=== PATIENT | female | born 1985 | race Caucasian/White ===

== ENCOUNTER → 2018-01-22 21:26 | Outpatient (CLI) | payer BC, SELFPAY ==
[2014-10-12 08:01] VITALS: BMI 22.3
[2018-01-28 19:55] LABS: HPV Reflexed? NOT INDICATED
== END ==
PROVIDERS: Family Provider Family Medicine; PCP Family Medicine; Visit Provider Obstetrics & Gynecology
DX: Z12.4 Encounter for screening for malignant neoplasm of cervix (principal)
CPT/HCPCS: 87624; 88175; G0145

== ENCOUNTER → 2018-02-16 16:53 | Outpatient (CLI) | payer BC, SELFPAY ==
[2014-10-12 08:01] VITALS: BMI 22.3
--- NOTE | 2018-02-16 16:58 | RAD_ITS ---
STUDY: X-RAY LEFT FOOT, FIRST TOE REASON FOR EXAM: Female, 32 years old. Pain. No injury. TECHNIQUE: 3 view(s) of the toe were obtained. COMPARISON: None. FINDINGS: Normal visualized metatarsus. There is mild arthrosis of the metatarsophalangeal (M.T.P.) joint. Normal interphalangeal joints. Normal phalanges and interphalangeal joints. The soft tissue structures are unremarkable. RAD/Toe(s) Min 2 Views IMPRESSION: Mild degenerative changes. Electronically Signed: Merari Regalado MD at 18:57 EST Tel , Service support ,
--- OUTSIDE RECORDS SUMMARY | 2018-04-05 02:10 | XMS RPT_ITS ---
:1985 Author Organization OHIP Care Team Providers Name Role Phone Gage Guadalupe Attending Unavailable Gage Guadalupe Referring Unavailable Gage Guadalupe Primary Care Unavailable Adrian López Attending Unavailable Gage Guadalupe Primary Care Unavailable PROBLEMS PROBLEMS DATE TYPE CONDITION / CODE ATTENDING STATUS SOURCE 01/22/2018 Unknown Z12.4 - Adrian López Active Rolfe Encounter for Community screening for Hospital malignant Repository neoplasm of cervix / Z12.4(ICD-10) PROCEDURES PROCEDURES No Procedure Records FoundRESULTS RESULTS TOE(S) MIN 2 VIEWS Observed: 02/16/2018 Status: F Source: AGUSTIN 4[facility] Imaging Services [address] [place] [address] Toe(s) Min 2 Views MR#: [id number] Acct: [id number] Name: ANA BENITES Rep #: [id number] : 1985 F 32 From: Merari Regalado MD PCP: Gage Guadalupe MD Status: REG CLI Study: Toe(s) Min 2 Views Date of Exam: 02/16/18 Exam# [id number] Ordering Dr: Gage Guadalupe MD STUDY: X-RAY LEFT FOOT, FIRST TOE REASON FOR EXAM: Female, 32 years old. Pain. No injury. TECHNIQUE: 3 view(s) of the toe were obtained. COMPARISON: None. FINDINGS: Normal visualized metatarsus. There is mild arthrosis of the metatarsophalangeal (M.T.P.) joint. Normal interphalangeal joints. Normal phalanges and interphalangeal joints. The soft tissue structures are unremarkable. RAD/Toe(s) Min 2 Views IMPRESSION: Mild degenerative changes. Electronically Signed: Merari Regalado MD at 18:57 EST Tel , Service support , CC: Gage Guadalupe MD Breaker Oiler: Signed PAP IG W/REFLEX HR Collected: 01/22/2018 Status: F Source: AGUSTIN HPV APTIMA 3:00 PM [facility] REPOSITORY Order Comment: CYTOLOGY INFORMATION: - CLINICAL INFORMATION: - DATE LMP/MENOPAUSE: 01/01/18 LMP - COLLECTION VIAL: Thin Prep Vial - LIVESTOCK BUYER SOURCE: CERVICAL/ENDOCERVICAL - COLLECTION TECHNIQUE: BRUSH/SPATULA Specimen Comment: [id number] Specimen Comment: Source.............Cervix;Endocervix Specimen Comment: LMP / Prev Treat...[id number]=[id number] Specimen Comment: No. of containers..01 ThinPrep Vial TYPE CODE TESTS RESULT OUT OF RANGE REFERENCE UNITS LAB L7400.0800 . Normal DIAGN Comment Result Comment: NEGATIVE FOR INTRAEPITHELIAL LESION AND MALIGNANCY. REACTIVE CELLULAR CHANGES AND/OR REPAIR ARE PRESENT. LAB L7400.0900 . Normal ADEQ Comment Result Comment: Satisfactory for evaluation. Endocervical and/or squamous metaplastic cells (endocervical component) are present. LAB L7400.1400 . Normal PERFORM Comment Result Comment: Martha Salinas, Clean Up Supervisor (ASCP) LAB L7400.1700 . Normal SIGN Comment Result Comment: Briana Fernando MD, Pathologist LAB L7400.4985 . Normal TEST METHOD Comment Result Comment: This liquid based ThinPrep(R) pap test was screened with the use of an image guided system. LAB L7400.2600 . Normal . COMM LAB L7400.2700 . Normal PAPSMR Comment Result Comment: The Pap smear is a screening test designed to aid in the detection of premalignant and malignant conditions of the uterine cervix. It is not a diagnostic procedure and should not be used as the sole means of detecting cervical cancer. Both false-positive and false-negative reports do occur. LAB L7400.2800 . Normal HPV RFLX Comment Result Comment: The HPV DNA reflex criteria were not met with this specimen result therefore, no HPV testing was performed. Performed at: [facility] [id number] Anode Adjuster: Gala Roman MD, Phone: [phone] Performed By: #### L7400.0357 #### [facility] (refer to report for specific site) refer to report for address and phone number ALLERGIES ALLERGIES DATE TYPE / CODE NAME / CODE REACTION SEVERITY SOURCE 08/30/2014 Drug No Known Unknown [facility] Allergy/4160 Allergies/F00 Hospital 31736(SNOMED [id number](RXNOR Repository CT) M) ENCOUNTERS ENCOUNTERS ADMIT/DISCHARGE ACCOUNT ADMITTING ENCOUNTER LOCATION SOURCE NUMBER CLASS 02/16/2018 [id number] Ambulatory Agustin Agustin 1 [facility] ing:MTRAD Repository 01/22/2018 [id number] Ambulatory Agustin Agustin 8 [facility] ing:LABSPEC Repository PAYERS PAYERS ENCOUNTER GUARANTOR PAYER SUBSCRIBER SOURCE 02/16/2018 ANA BENITES2475 Primary [facility] Insurance:ANTHEMPolic GOWINDOB: [facility] Number: [id number] Hospital [address]Gtq: (466) [id number] Repository [phone] (HP) cheryl Date:[id number] [address]SB: 02/16/2018 Secondary NOT GIVENUNK Agustin Insurance:SELF PAY [facility] Number: Effective Repository Date:2018-02-16 01/22/2018 Ana Dsprg1853 Primary [facility] Insurance:ANTHEMPolic [place]in[place]OB: [place] Number: [id number] Hospital [address]Fzm: [phone]) [id number] Repository [phone] (HP) cheryl Date:[id number], [place] [address]FA: 01/22/2018 Secondary NOT GIVENUNK Agustin Insurance[facility]LF [facility]: Effective Repository Date:2018-01-22
== END ==
PROVIDERS: Family Provider Family Medicine; PCP Family Medicine; Referring Provider Family Medicine; Visit Provider Family Medicine
DX: M79.675 Pain in left toe(s) (principal)
CPT/HCPCS: 73660

== ENCOUNTER 2018-06-03 19:32 | Emergency (ER) | payer BC, SELFPAY ==
[2018-06-03 19:32] VITALS: BP 132/82; PULSE 101; RESP 18; TEMP 37.2; O2SAT 98
[2018-06-03 19:33] VITALS: BP 132/82; PULSE 98; RESP 17; TEMP 37; O2SAT 98; BMI 24.1
--- NOTE | 2018-06-03 21:14 | ED.DCSUM_ITS ---
- ER Visit Summary Date of Service: 06/03/18 Chief Complaint: Finger lacerations History of Present Illness: The patient is a 33 F who presents with finger lacerations to her left fourth and fifth fingers. Patient was using a knife when she accidentally cut herself. Patient states her last tetanus shot was in 2004. Patient denies any paresthesias or weakness. Been persistent. Patient states her pain is worse with movement. Physical Examination: Vital signs are stable. Patient is afebrile. Patient is in no acute distress. Skin is warm dry. There is a 1 cm full-thickness linear laceration over the middle phalanx of the left fifth finger. There is a 0.5 cm partial-thickness linear laceration over the middle phalanx of the left fourth finger. There is minimal gapping of the wound margins. There is mild bleeding. There are no foreign bodies noted. Sensation was intact to light touch in all digits. Capillary refill was less than 2 seconds in all digits. Emergency Department Course and Treatment: The wounds were cleaned and closed with Dermabond skin adhesive. An aluminum foam splint was applied to the left fifth finger. Patient was given a tetanus booster. Patient was instructed to keep the wounds clean and dry. Patient was instructed to avoid bacitracin, Neosporin, or any Vaseline-based ointment. Patient understood and was agreeable with the plan. All questions were answered. Disposition: Discharge home Impression: Laceration to left fourth and fifth fingers This note was generated with [employer] dictation software. It may contain incorrect words, spelling, and punctuation that were not noted in review of the chart prior to signing ED Disposition - Plan for ED Patient: Disposition: Home or Assisted Living Diagnosis: Laceration of finger Instructions: ED Laceration Ext Skin Glue, ED Laceration Hand Referrals: Gage Guadalupe MD [Primary Care Provider] - 5-7 Days
[2018-06-03] MEDS: Diphth,Pertuss(Acell),Tet Vac 0.5 ML Vial IM (21:28)
[2018-06-03 21:52] VITALS: BP 130/70; PULSE 78; RESP 18; O2SAT 97
== END 2018-06-03 21:53 | disposition home or self-care (01) ==
PROVIDERS: Emergency Provider Emergency Medicine; Family Provider Family Medicine; PCP Family Medicine
DX: S61.215A Laceration without foreign body of left ring finger without damage to nail, initial encounter (principal); S61.217A Laceration without foreign body of left little finger without damage to nail, initial encounter; F41.9 Anxiety disorder, unspecified; Z23 Encounter for immunization; Z79.899 Other long term (current) drug therapy; W26.0XXA Contact with knife, initial encounter; Y93.89 Activity, other specified; Y92.89 Other specified places as the place of occurrence of the external cause; Y99.8 Other external cause status
CPT/HCPCS: 12001; 90471; 90715; 99283

== ENCOUNTER 2019-04-25 14:00 | Observation (INO) | payer BC, SELFPAY ==
[2019-04-25] VITALS (9 sets, daily range): BP systolic 121–137; BP diastolic 72–102; PULSE 101–137; RESP 12–19; TEMP 36.8–37.2; O2SAT 97–100; BMI 22.6; BMI 22.4; BMI 22.5
--- NOTE | 2019-04-25 14:17 | EKG12_ITS ---
Test Reason : PALPS Blood Pressure : / mmHG Vent. Rate : 106 BPM Atrial Rate : 106 BPM P-R Int : 158 ms QRS Dur : 088 ms QT Int : 370 ms P-R-T Axes : 072 078 049 degrees QTc Int : 491 ms Sinus tachycardia Otherwise normal ECG Confirmed by JOSE URENA, JESSICA ([id number]), senior technical editor VÍCTOR SANTANA ([id number]) on 04/28/2019 8:58:32 AM Referred By: COSME Confirmed By:JESSICA GARCIA MD
--- NOTE | 2019-04-25 14:17 | RAD_ITS ---
STUDY: X-RAY CHEST REASON FOR EXAM: Female, 33 years old. COMPLAINS OF and quot;HIGH HEART RATE and quot; SINCE 1100. CURRENTLY BEING TREATED WITH ATB FOR SINUS INFECTION. TECHNIQUE: Single frontal view of the chest. COMPARISON: None. FINDINGS: The lungs are clear and expanded. There is no demonstrated pleural abnormality. Normal size heart. Normal mediastinum and pacheco. Normal visualized pulmonary arteries. Normal visualized aortic arch and descending thoracic aorta. Bilateral nipple artifact. Normal visualized thoracic spine. Normal visualized ribs, clavicles, and shoulders. There is no demonstrated abnormality of the visualized soft tissue structures of the upper abdomen. RAD/Chest 1 View (Portable) IMPRESSION: No acute pulmonary findings. Electronically Signed: Lalito Mejia MD at 14:41 EST Tel , Service support ,
--- NOTE | 2019-04-25 14:25 | ED.VISSUMM ---
- ER Visit Summary Date of Service: 04/25/19 Chief Complaint: Palpitations History of Present Illness: The patient is a 33 F with palpitations that started today at 11 AM. She never had this before. Nothing seemed to bring it on. Nothing makes it better or worse. She has a dry cough and she is currently being treated for sinusitis with Augmentin. She is not currently taking decongestants. She does take Flonase and an SSRI as well as control. No other new medications. No history of heart disease, blood clots, or lung disease. Physical Examination: Afebrile and vital signs unremarkable except for heart rate of 137. Patient is nontoxic and in no acute distress. Heart tachycardic but regular. Lungs clear. Abdomen soft. Extremities nontender with no edema. Pulses strong and equal. Test Results: EKG, labs, chest x-ray ordered and results are pending. Emergency Department Course and Treatment: Patient was placed on a monitor. EKG, labs, chest x-ray ordered. Treated with IV fluid bolus. Platelets 451. Otherwise CBC normal. Potassium 3.4 and BUN 6. Coags pending. Troponin normal. D-dimer elevated. negative. Mag normal. TSH normal. Cultures pending. Chest x-ray showed nothing acute. Because of the d-dimer elevation, CT was ordered. This showed bilateral subsegmental PEs, bilateral patchy infiltrates, and bilateral small pleural effusions. Because of the patient's multiple findings and tachycardia, I feel she would need inpatient care. She was treated with a azithromycin and Rocephin. Cultures pending. After discussion with the hospitalist, she was treated with Lovenox. Patient remained stable. Prior to discharge, patient requested additional insulin. She did not want to stay for a blood sugar recheck. She was given 6 units. She is going to eat and recheck her sugar. She has equipment for this. She voiced understanding that if she does not eat, her sugars could drop. Patient was treated and discharged. Treatment Plan: As above Disposition: Admission Impression: Bilateral subsegmental PEs Bilateral pneumonia Tachycardia This note was generated with [employer] software. It may contain incorrect words, spelling, and punctuation that were not noted in review of the chart prior to signing ED Disposition - Plan for ED Patient: Disposition: [facility] Care [facility]
[2019-04-25] MEDS: 0.9% Normal Saline 1,000 ML 1000 ML IV (14:34)
[2019-04-25 14:44] LABS: Absolute Lymphocyte Count 2.32 X10^3/uL (0.83-4.51); Absolute Neutrophil Count 7.5 X10^3/uL (2.0-7.7); Basophil# 0.03 X10^3/uL; Basophil% 0.3 % (0-1); Eosinophil# 0.07 X10^3/uL; Eosinophils% 0.7 % (0-5); Hematocrit 42.1 % (37-47); Hemoglobin 13.1 g/dL (12.0-15.0); Lymphocyte # 2.32 X10^3/ul (4.0); Lymphocyte % 22.1 % (19-41); Mean Corp Hgb Conc 31.1 g/dL (32-36); Mean Corpuscular Hgb 25.5 pg (27.0-32.0); Mean Corpuscular Volume 81.9 fL (81-99); Monocyte# 0.45 X10^3/uL; Monocyte% 4.3 % (0-10); NRBC Flagged by Analyzer 0 % (0-5); Neutrophil # 7.52 X10^3/uL (2.7-7.7); Neutrophil % 71.5 % (47-70); Platelet Count 451 K/mm3 (150-450); RBC Distribution Width CV 13.2 % (11.6-14.6); RBC Distribution Width SD 39.7 fl (35.1-43.9); Red Blood Count 5.14 M/mm3 (4.2-5.4); White Blood Count 10.5 K/mm3 (4.4-11.0)
[2019-04-25 14:53] LABS: D-Dimer Quantitative (DVT/PE) 0.88 FEU/ug/m (0.27-0.49)
[2019-04-25 15:05] LABS: Anion Gap 8 (5-15); BUN 6 mg/dL (7-18); BUN/Creat Ratio 10.8 RATIO (10-20); Calcium,Total 9.3 mg/dL (8.5-10.1); Chloride 103 mmol/L (98-107); Creatinine, Serum 0.56 mg/dL (0.55-1.02); EST Glomerular Filtration Rate 133 mL/min (>60); Est Glom Filt Rate - Afr Amer 161 mL/min (>60); Glucose 90 mg/dL (74-106); Magnesium 2.4 mg/dL (1.6-2.6); Potassium 3.4 mmol/L (3.5-5.1); Sodium Level 138 mmol/L (136-145); Thyroid Stim Hormone (TSH) 0.69 uIU/mL (0.358-3.74)
[2019-04-25 15:20] LABS: Pregnancy, Serum, hCG Quali. NEGATIVE Negative (0-9 Nonpreg)
--- NOTE | 2019-04-25 15:23 | CT_ITS ---
STUDY: CTA CHEST REASON FOR EXAM: Female, 33 years old. Increased heart rate, palpitations, PE RADIATION DOSAGE (If Supplied By Facility): CTDIvol = ( 10.12 ) mGy, DLP = ( 251.80 ) mGycm TECHNIQUE: The examination was performed with the intravenous administration of 75ml Isovue 370. Post-processing of the angiographic images was performed, with multiplanar reformation and 3D reconstruction. Individualized dose optimization techniques were used for this CT. COMPARISON: CT of the abdomen and pelvis dated August 30, 2014 FINDINGS: There are bilateral groundglass and patchy opacities within the upper and lower lobes. There are small bilateral pleural effusions present. Normal enhancement of the main pulmonary artery and right and left pulmonary arteries. There are filling defects within subsegmental pulmonary arteries within the lower lobes consistent with underlying emboli. Normal thoracic aorta and visualized great vessels. There is no demonstrated aortic dissection. Normal heart and pericardium. Normal mediastinum. Normal hilar regions. Normal visualized trachea and bronchi. Normal osseous structures. Normal visualized upper abdomen. CT/CTA Chest W/WO Contrast IMPRESSION: Bilateral pulmonary emboli involving subsegmental pulmonary arteries within the lower lobes. Bilateral patchy and groundglass opacities concerning for underlying edema and/or an infectious process. Small bilateral pleural effusions. N.B. : The above information has been verbally conveyed by Merari Regalado MD to Dr. Pedro Mcdowell MD, on 04/25/2019 16:23:30 (ET). Electronically Signed: Merari Regalado MD at 16:24 EST Tel , Service support ,
[2019-04-25 17:07] LABS: Prothrombin Time (Protime)PT. 13.1 SECONDS (11.7-14.9)
[2019-04-25 17:08] LABS: Partial Thromboplast Time 32.5 Seconds (24.1-36.2)
[2019-04-25] MEDS: Ceftriaxone 1 GM/50 ML BAG IV (17:09)
[2019-04-25] MEDS: Enoxaparin 60 MG/0.6 ML Syringe SC (18:12)
--- NOTE | 2019-04-25 18:19 | HP.PCM_ITS ---
Problem List (1) Status: Acute (2) Status: Acute (3) Status: Acute History of Present Illness Date of Admission: 04/25/19 Chief Complaint: racing heart and lightheadedness The patient is a 33 year old F with no significant past medical history who has recently been treated as an outpatient with Augmentin for cough and green nasal discharge. She presented to the emergency department at [facility] on 04/25/2019 for racing heart that she noticed this AM. She actually tells me that the cough and the nasal congestion are improving since the anti biotics were started. She has some loose stool since starting the Augmentin. Vital signs of presentation to the emergency department were heart rate 137, temperature 98.7, blood pressure 137/102, respiratory rate 16 and she was 99 to 100% saturated on room air. The white blood cell count was 10.5 with 71.5% neutrophils. Hemoglobin was 13.1 and the platelets were increased at 451,000. A d-dimer was increased at 0.88. BMP was remarkable for a decreased potassium at 3.4. Troponin was less than 0.015. TSH was normal at 0.69. Serum was negative. CTA of the chest showed bilateral pulmonary emboli involving subsegmental pulmonary arteries within the lower lobes. There were bilateral patchy and groundglass opacities secondary to pneumonia. She denies CP and also denies SOB. No hemoptysis. There were also small bilateral pleural effusions. She is on a control pill and has been on control pills for many years however she recently had her control pill changed by Dr. López. She is being admitted to a monitored bed on PCU. She was given Lovenox in the Ed and she will be started on Xarelto in the AM. 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 Paternal History Items: No pertinent history Review of Systems Constitutional: Denies: Chills, Fever, Weight Change HEENT: Reports: Nasal Congestion, Post Nasal Drip. Denies: Ear Pain, Head Aches, Sinus Congestion, Sinus Drainage, Sore Throat Cardiovascular: Reports: Palpitations. Denies: Chest Pain, Chest Pressure, Chest Tightness, Edema, Orthopnea Respiratory: Reports: Cough - denies sputum production but, I think she is swallowing secreations. Denies: Hemoptysis, Shortness of Breath, Shortness of breath at rest, Shortness of breath upon exertion, Sputum production Gastrointestinal: Denies: Abdominal Pain, Nausea, Vomiting Genitourinary: Denies: Dysuria Gynecological: Denies: Breast symptoms, Vaginal discharge Musculoskeletal: Reports: Joint Tenderness - R hip and the left knee. Denies: Joint Pain Skin: Denies: Jaundice, Rash, Wounds Neurological: Denies: Balance problems, Confusion, Focal weakness, Headaches, Numbness, Tingling, Seizures Psychiatric: Reports: Anxiety. Denies: Depression, Homicidal Ideations, Suicidal Ideations Hematologic/ Lymphatic: Denies: Easy Bruising, Easy Bleeding, Hx of blood clot VTE Information - Inpt Only VTE Present on Admission: Yes VTE Mechan Device Prophylaxis: None VTE Pharm Prophylaxis ordered?: No Reason prophylaxis not ordered:: Treatment Not Indicated - She received a therapeutic dose of Lovenox in the emergency department and will be started on Xarelto in the a.m. Patient Problems: Active and Suspected Problems Pulmonary emboli (Acute) Community acquired pneumonia (Acute) Hypokalemia (Acute) - Physical Exam Vitals/I&O's: Vital Signs Temp Pulse Resp BP Pulse Ox 98.9 F 112 H 19 H 128/91 H 99 04/25/19 16:50 04/25/19 17:09 04/25/19 17:09 04/25/19 17:09 02/16/20 17:09 Oxygen Delivery Method Room Air Weight: 128 lb Body Mass Index (BMI) 22.6 Intake and Output for Last 24 Hours 04/23/19 04/24/19 04/25/19 23:59 23:59 23:59 Intake Total 1050 / 1050 Balance 1050 / 1050 General: Alert, Oriented x3, Cooperative, No apparent distress, Well developed, Well nourished HEENT: Atraumatic, PERRLA, EOMI, Normocephalic Oral: No Gingival or Mucosal Lesions/ Ulcerations, Dry Mucosa Neck: Supple, No JVD, Negative Carotid Bruits, No Nodes, Trachea Midline Lungs: Clear to auscultation, Normal air movement, No rhonchi, No wheeze, No rales Cardiovascular: Regular Rhythm, Normal S1, Normal S2, No murmurs, No Ectopic Activity, No rub noted, No Gallop, Tachycardic Abdomen: Bowel Sounds Present, Soft, Non Tender, Non-Distended Extremities: No clubbing, No cyanosis, No edema, Capillary Refill Less than 3 Seconds, No Calf Tenderness, Peripheral Pulses Normal, - - Negative Homans, negative Clovis signs Skin: No rashes, No breakdown Musculoskeletal: No Tenderness to Palpation of Joints or Extremities, No Muscle Wasting Neurological: Cranial nerves II-XII grossly intact, Neuro grossly intact Psych/Mental Status: Normal Affect, Appropriate Laboratory Results 04/25/19 14:10: WBC 10.5, RBC 5.14, Hgb 13.1, Hct 42.1, MCV 81.9, MCH 25.5 L, MCHC 31.1 L, RDW Std Deviation 39.7, RDW Coeff of Lashanda 13.2, Plt Count 451 H, MPV 9.0, Immature Gran % (Auto) 1.100 H, Neut % (Auto) 71.5 H, Lymph % (Auto) 22.1, [place] % (Auto) 4.3, Eos % (Auto) 0.7, Baso % (Auto) 0.3, Absolute Neuts (auto) 7.5, Absolute Lymphs (auto) 2.32, Nucleated RBC % 0 04/25/19 14:10: D-Dimer Quant (PE/DVT) 0.88 H* 04/25/19 14:10: Sodium 138, Potassium 3.4 L, Chloride 103, Carbon Dioxide 27.0, Anion Gap 8, BUN 6 L, Creatinine 0.56, Estim Creat Clear Calc 119.30, Est GFR (MDRD) Af Amer 161, Est GFR (MDRD) Non-Af 133, BUN/Creatinine Ratio 10.8, Glucose 90, Calcium 9.3, Magnesium 2.4, Troponin I < 0.015, TSH 0.69 04/25/19 14:10: Serum , Qual NEGATIVE 04/25/19 14:10: PT 13.1, INR 1.0, APTT 32.5 Assessment/Plan All Active Problems Pulmonary emboli (Acute) Community acquired pneumonia (Acute) Hypokalemia (Acute) Impressions 1. Community acquired pneumonia-has been on Augmentin as an outpatient. Influenza swab was negative at her PCPs office. 2. Subsegmental pulmonary emboli in the lower lobes-more likely than not related to control pills, recently changed by Dr. López. She was admitted to a monitored bed on PCU. Patient was given a therapeutic dose of Lovenox in the emergency department and will be started on Xarelto 15 mg twice daily in the AM. Serial cardiac enzymes have been ordered and an echocardiogram in the a.m. to rule out right ventricular strain. administrative services officer has been consulted to determine if the insurance company will cover Xarelto. 3. Hypokalemia-supplement ordered in the IV fluid BCP has been discontinued. She will need to discuss with Dr. López an alternate method of control. Code Visit OBSV E&M: 48028 Initial observation care L3
[2019-04-25] MEDS: Rivaroxaban 15 MG Tablet PO (19:44)
[2019-04-25] MEDS: 0.9% Saline Lock 10 ML Syringe IV (19:45)
[2019-04-25] MEDS: guaiFENesin 1,200 MG Tablet 1200 MG PO (21:33)
[2019-04-26 03:00] VITALS: PULSE 82
[2019-04-26 03:15] VITALS: BP 115/78; PULSE 89; RESP 18; TEMP 36.3; O2SAT 99
--- NOTE | 2019-04-26 05:55 | ECHOD_ITS ---
Reason For Study: SOB Procedure This was a 2D Doppler, Color Flow transthoracic echocardiogram. Exam performed portable in patient room. Left Ventricle Normal size and thickness. The estimated ejection fraction is 65 %. Normal diastology for age. No regional wall motion abnormalities noted. Right Ventricle Normal size and thickness. Normal systolic function. Atria Normal left atrium. Normal right atrium. Normal atrial septum. Mitral Valve The mitral valve is structurally normal. No prolapse or stenosis seen. Tricuspid Valve Normal tricuspid valve. Unable to estimate RV systolic pressure due to inadequate jet, pulmonary artery pressure probably normal. Aortic Valve Normal aortic valve. Trisinus/trileaflet aortic valve. Pulmonic Valve Normal pulmonic valve. Great Vessels Normal aortic root. Normal arch. Normal inferior vena cava. Inferior vena cava collapse with sniff. Pericardium/Pleural No pericardial effusion. MMode/2D Measurements & Calculations LVIDd: 4.0 cm IVSd: 0.93 cm Ao root diam: 2.4 cm LVIDs: 2.2 cm LVPWd: 1.00 cm RVDd: 2.9 cm FS: 46.6 % LAV(MOD-bp): 41.0 ml LVAd ap4: 24.2 cm2 SV(MOD-sp4): 40.5 ml LAV(MOD-bp) Indexed: 25.7 ml/m2 EDV(MOD-sp4): 63.0 ml LAV(MOD-sp2): 41.9 ml EDV(sp4-el): 63.1 ml LAV(MOD-sp4): 40.0 ml LVAs ap4: 12.7 cm2 ESV(MOD-sp4): 22.4 ml ESV(sp4-el): 22.0 ml EF(MOD-sp4): 64.4 % EF(sp4-el): 65.2 % SV(sp4-el): 41.1 ml LA A4 area: 15.4 cm2 LA dimension(2D): 3.1 cm RA A4 area: 10.7 cm2 Time Measurements MV dec time: 0.10 sec Doppler Measurements & Calculations MV E max mac: 123.6 cm/sec Lat Peak E' Mac: 11.6 cm/sec Med Peak E' Mac: 14.6 cm/sec MV A max mac: 92.3 cm/sec E/E' lat: 10.6 E/E' med: 8.4 MV E/A: 1.3 Ao V2 max: 145.7 cm/sec LV V1 max: 110.5 cm/sec PA V2 max: 131.4 cm/sec Ao max P.5 mmHg LV V1 max P.9 mmHg Interpretation Summary The estimated ejection fraction is 65 %. Normal diastology for age. Unable to estimate RV systolic pressure due to inadequate jet, pulmonary artery pressure probably normal. There is no comparison study available. Ordering Physician: Luciana Arzola Referring Physician: Gage Guadalupe Performed By: Zahida Coyle, CHAPIS, RVT
[2019-04-26 07:22] VITALS: PULSE 89
[2019-04-26 09:15] VITALS: BP 121/59; PULSE 79; RESP 16; TEMP 36.7; O2SAT 97
--- NOTE | 2019-04-26 10:38 | DCINST_ITS ---
- Discharge Diagnoses Current Active Problems: Current Active and Chronic Problems Pulmonary emboli (Acute) Community acquired pneumonia (Acute) Hypokalemia (Acute) You will use the following diet at home:: Regular Your food should be the consistency of: Regular Discharge Activity: Return to Normal Activity, May Not Drive - for 5 days Weight Bearing Status: Weight bearing as tolerated Call your doctor if your incision/area has: Continuous Slow Oozing, Sudden Increased Bleeding, Increased Pain/ Swelling, Increased Redness Call your doctor if you observe: Fever of 101 or Higher, Coldness, Increased Pain, Numbness or Tingling, Inability to urinate, Inability to have a bowel movement, Shortness of breath, Dizziness, Fainting spells, Swelling in the ankles, Chest pain, Prolonged hiccoughing, Increased palpitations (irregular heartbeat), Calf discomfort Additional Instructions: control pill stop as probably the cause for PE Allergies/Adverse Reactions: Allergies No Known Allergies Allergy (Verified 04/25/19 14:02) Medications to take at Discharge Fluvoxamine Maleate [Luvox] 75 mg PO DAILY 08/03/14 Fluticasone 0.05% [Flonase Nasal [place]] 1 spray NASAL PRN PRN 04/25/19 Guaifenesin [Mucinex] 1,200 mg PO BID #14 tab 04/26/19 Levofloxacin [Levaquin] 500 mg PO DAILY #10 tab 04/26/19 Rivaroxaban [Xarelto] 15 mg PO BIDCM #42 tab 04/26/19 The following prescriptions were given: Levofloxacin [Levaquin] 500 mg PO DAILY #10 tab Transmission Status: Pending to [facility] Guaifenesin [Mucinex] 1,200 mg PO BID #14 tab Transmission Status: Pending to [facility] Rivaroxaban [Xarelto] 15 mg PO BIDCM #42 tab Transmission Status: Pending to [facility] Primary Care Physician: Gage Guadalupe MD [Primary Care Provider] - Please follow up with your Primary Care Physician in: in 2 weeks Test Results: Test results from this visit will be discussed in further detail at your follow- up appointment, if applicable.
--- NOTE | 2019-04-26 10:38 | DS.PCM_ITS ---
Discharge Date and Diagnosis - Problem List Patient Problems: Active and Suspected Problems Pulmonary emboli (Acute) Community acquired pneumonia (Acute) Hypokalemia (Acute) Date of Admission: 04/25/19 Date of Discharge: 04/26/19 - Primary Discharge Diagnosis Active and Suspected Problems Pulmonary emboli (Acute) Community acquired pneumonia (Acute) Hypokalemia (Acute) Hospital Course and Treatment Imaging Results: 04/26/19 05:55 Echo Complete [ECHO] AM (NON MEDS) Summary of Care Provided: The patient is a 33 year old F on control pill was admitted for cough greenish nasal discharge. Patient is also short of breath. Patient is started on Augmentin for pneumonia as an outpatient on Friday, about 2 days ago. Patient was tachycardic, heart rate 137. D-dimers was elevated. Chest CTPA was done and reported subsegmental bilateral PE mid and lower lobes and bilateral patchy groundglass opacities secondary to pneumonia. Patient started on Lovenox, therapeutic dose which then changed to Xarelto 15 mg twice daily. Serial troponin enzymes negative. Magnesium normal. 2D echo was done and shows EF 65% with normal diastolic. Normal right ventricle systolic function, size and thickness. As patient had mild side effect of diarrhea on Augmentin, therefore antibiotic changed to Levaquin 500 mg for 5 more days complete a total of 8 days. Diagnosis: Subsegmental lateral pulmonary EEG. Bilateral community-acquired pneumonia, most probably bacterial Contraceptive pill discontinued. Follow-up with Dr. López an alternate method of control. Discharge medication reconciliation done. Discharge follow-up instructions completed. Discharge process discussed with the patient and all questions were answered to patient's satisfaction. Prescription for Xarelto and Levaquin and Mucinex sent to patient's pharmacy. Patient Problems: Active and Suspected Problems Pulmonary emboli (Acute) Community acquired pneumonia (Acute) Hypokalemia (Acute) - Physical Exam Vitals/I&O's: Vital Signs Temp Pulse Resp BP Pulse Ox 97.3 F L 89 18 115/78 99 04/26/19 03:15 04/26/19 07:22 04/26/19 03:15 04/26/19 03:15 04/26/19 03:15 Oxygen Delivery Method Room Air Weight: 127 lb Body Mass Index (BMI) 22.4 Intake and Output for Last 24 Hours 04/24/19 04/25/1920 23:59 23:59 23:59 Intake Total 2300.42 / 2300.42 520 / 520 Balance 2300.42 / 2300.42 520 / 520 General: Alert, Oriented x3, Cooperative HEENT: Atraumatic, PERRLA, EOMI, Normocephalic Oral: No Gingival or Mucosal Lesions/ Ulcerations, Dry Mucosa Neck: Supple, No JVD, Negative Carotid Bruits Lungs: Diminished - Air entry bilateral equal., Rhonchi - Coarse rhonchi Cardiovascular: Regular rate, Regular Rhythm, Normal S1, Normal S2, No murmurs Abdomen: Bowel Sounds Present, Soft, Non Tender, Non-Distended Extremities: No edema, Capillary Refill Less than 3 Seconds Skin: No rashes, No breakdown Musculoskeletal: No Tenderness to Palpation of Joints or Extremities, Arthritic Changes Neurological: Cranial nerves II-XII grossly intact, Deep Tendon Reflexes 2+/4 and Symmetrical, Neuro grossly intact Psych/Mental Status: Normal Affect, Appropriate Laboratory Results 04/25/19 14:10: WBC 10.5, RBC 5.14, Hgb 13.1, Hct 42.1, MCV 81.9, MCH 25.5 L, MCHC 31.1 L, RDW Std Deviation 39.7, RDW Coeff of Lashanda 13.2, Plt Count 451 H, MPV 9.0, Immature Gran % (Auto) 1.100 H, Neut % (Auto) 71.5 H, Lymph % (Auto) 22.1, [place] % (Auto) 4.3, Eos % (Auto) 0.7, Baso % (Auto) 0.3, Absolute Neuts (auto) 7.5, Absolute Lymphs (auto) 2.32, Nucleated RBC % 0 04/25/19 14:10: D-Dimer Quant (PE/DVT) 0.88 H* 04/25/19 14:10: Sodium 138, Potassium 3.4 L, Chloride 103, Carbon Dioxide 27.0, Anion Gap 8, BUN 6 L, Creatinine 0.56, Estim Creat Clear Calc 119.30, Est GFR (MDRD) Af Amer 161, Est GFR (MDRD) Non-Af 133, BUN/Creatinine Ratio 10.8, Glucose 90, Calcium 9.3, Magnesium 2.4, Troponin I < 0.015, TSH 0.69 04/25/19 14:10: Serum , Qual NEGATIVE 04/25/19 14:10: PT 13.1, INR 1.0, APTT 32.5 04/25/19 19:00: Troponin I < 0.015 04/25/19 21:05: Troponin I < 0.015 Current Medications Acetaminophen (Tylenol) 650 mg PO Q6H PRN PRN PRN Reason: Pain Score 1-10/Temp > 100.7 F Fluticasone Propionate (Flonase Nasal [place]) 1 spray NASAL DAILY PRN PRN PRN Reason: ALLERGIES Fluvoxamine Maleate (Luvox) 75 mg PO DAILY [facility] Guaifenesin (Mucinex) 1,200 mg PO BID [facility] Last Admin: 04/25/19 21:33 Dose: 1,200 mg Documented by: Hydrocodone Bit/Homatropine Methylb (Hycodan Syrup) 10 ml PO QHS [facility] Last Admin: 04/25/19 21:33 Dose: 10 ml Documented by: Magnesium Hydroxide (Milk Of Magnesia) 30 ml PO DAILY PRN PRN PRN Reason: Constipation Ondansetron HCl (Zofran) 4 mg IV Q8H PRN PRN PRN Reason: NAUSEA/VOMITING Oxycodone HCl (Oxyir) 5 mg PO Q4H PRN PRN PRN Reason: Pain Score 4-10/10 Prochlorperazine Edisylate (Compazine Iv) 5 mg IV Q4H PRN PRN PRN Reason: Breakthrough Nausea/Vomiting [facility] Admin: 04/25/19 19:44 Dose: 15 mg Documented by: Sodium Chloride () 10 - 40 ml IV UD PRN PRN Reason: SALINE FLUSH Last Admin: 04/25/19 19:45 Dose: 10 ml Documented by: Throat Lozenges (Cepacol Sore Throat Lozenge) 1 lozenge MUCOUS MEM Q2H PRN PRN PRN Reason: SORE THROAT Home Medications: Medications to take at Discharge RX: Fluvoxamine Maleate [Luvox] 75 mg PO DAILY 08/03/14 RX: Fluticasone 0.05% [Flonase Nasal [place]] 1 spray NASAL PRN PRN 04/25/19 Levofloxacin [Levaquin] 500 mg PO DAILY #10 tab 04/26/19 RX: Guaifenesin [Mucinex] 1,200 mg PO BID #14 tab 04/26/19 RX: Rivaroxaban [Xarelto] 15 mg PO BIDCM #42 tab 04/26/19 Following Prescrptions Were Given to Patient: Levofloxacin [Levaquin] 500 mg PO DAILY #10 tab Transmission Status: Received by [facility] RX: Guaifenesin [Mucinex] 1,200 mg PO BID #14 tab Transmission Status: Received by [facility] RX: Rivaroxaban [Xarelto] 15 mg PO BIDCM #42 tab Transmission Status: Received by [facility] Primary Care Physician: Gage Guadalupe MD [Primary Care Provider] - Medical Necessity - Tobacco Use Smoking Status: Never smoker Tobacco Use: Non-smoker Meaningful Use Info Meaningful Use Diagnoses (Choose all that apply): None applicable Code Visit OBSV E&M: 92905 Observation care discharge
[2019-04-26] MEDS: fluvoxaMINE Maleate 50 MG Tablet 75 MG PO (10:48)
[2019-04-26] MEDS: guaiFENesin 1,200 MG Tablet 1200 MG PO (10:48)
[2019-04-26] MEDS: Rivaroxaban 15 MG Tablet PO (10:49)
--- NOTE | 2019-04-26 10:49 | CASEMGMT ---
Addendum entered by Jazmyn Covington 04/26/19 12:18: Meds were accidentally sent to [facility] retail pharmacy so Leonard from pharmacy called meds to [facility] per pt request. Call to [facility] and per pharmacist, pt's co-pay for Xarelto is $128.32 at this time. Pt is updated and provided with Xarelto co-pay card with instruction at this time, voices understanding. Pt voices no further questions/concerns/needs at this time. Tam JONES CM Original Note: Pt to be sent home on anti-coagulant for the PE's. Pt states [facility] as preferred pharmacy and this was placed in [employer] at this time. Pt states that she has Rx coverage thru her insurance and this RN CM advised her that once script e-scribed to pharmacy then this RN CM will call to check co-pay and can provide coupon card, pt voices understanding. Pt voices no further questions/concerns/needs at this time. Tam JONES CM
--- NOTE | 2019-04-26 12:19 | PHA.DC.MC ---
Addendum entered and electronically signed by Sosa Padgett 04/26/19 12:21: Prescriptions sent to [facility], pt wants [facility]. I called our pharmacy and they will transfer to [facility]. Original Note: Pharmacy Service has performed discharge medication reconciliation and counseling for this patient. 1. RIVAROXABAN 15MG PO BIDCM X 3 WEEKS THEN 20MG PO DAILY WITH DINNER 2. GUAIFENESIN 1200MG PO BID X 7 DAYS 3. LEVOFLOXACIN 500MG PO DAILY X 10 DAYS The patient's discharge medication list was reviewed for discrepancies and discrepancies were resolved. Home Medications Fluvoxamine Maleate [Luvox] 75 mg PO DAILY 08/03/14 Fluticasone 0.05% [Flonase Nasal [place]] 1 spray NASAL PRN PRN 04/25/19 Guaifenesin [Mucinex] 1,200 mg PO BID #14 tab 04/26/19 Levofloxacin [Levaquin] 500 mg PO DAILY #10 tab 04/26/19 Rivaroxaban [Xarelto] 15 mg PO BIDCM #42 tab 04/26/19 The patient was counseled on the following discharge medications and changes in medications for homegoing were reviewed. The Reason for Use, instructions for use, and potential side effects were reviewed for all new medications. The patient's questions regarding all of their medications were answered. The patient was able to verbally demonstrate an understanding of their discharge medications.
== END 2019-04-26 10:38 | disposition home or self-care (01) ==
LOC: ED 14:39 → PCU 18:30
PROVIDERS: Admitting Provider Internal Medicine; Emergency Provider Emergency Medicine; PCP Family Medicine; Visit Provider Internal Medicine
DX: I26.99 Other pulmonary embolism without acute cor pulmonale (principal); E87.6 Hypokalemia; J18.9 Pneumonia, unspecified organism; R00.2 Palpitations; Z79.899 Other long term (current) drug therapy; Z79.3 Long term (current) use of hormonal contraceptives
CPT/HCPCS: 36415; 71045; 71275; 80048; 83735; 84443; 84484; 84703; 85025; 85379; 85610; 85730; 87040; 93005; 93306; 96361; 96365; 96367; 96372; 99218; 99285; J7030; Q9967; A4216; G0378

== ENCOUNTER → 2019-05-12 | Outpatient (CLI) | payer BC, SELFPAY ==
[2019-04-25 18:31] VITALS: BMI 22.4
[2019-05-12 20:08] LABS: Chlamydia Trachomatis by PCR Negative (Negative); Neisserai gonorrhoeae by PCR Negative (Negative); Probe Check PASS; Sample Adequacy Control PASS; Specimen Processing Control PASS
== END | disposition home or self-care (01) ==
PROVIDERS: PCP Family Medicine; Referring Provider Obstetrics & Gynecology; Visit Provider Obstetrics & Gynecology
DX: Z11.3 Encounter for screening for infections with a predominantly sexual mode of transmission (principal)
CPT/HCPCS: 87491; 87591

== ENCOUNTER → 2019-05-14 | Outpatient (CLI) | payer BC, SELFPAY ==
[2019-04-25 18:31] VITALS: BMI 22.4
--- NOTE | 2019-05-14 09:50 | VDLE_ITS ---
Reason For Study: PE RIGHT LEFT GSV is normal. GSV is normal. CFV is compressible, spontaneous, phasic, CFV is compressible, spontaneous, phasic, competent and demonstrates normal competent, and demonstrates normal augmentation. augmentation. FV is compressible, spontaneous, phasic, FV is compressible, spontaneous, phasic, competent and demonstrates normal competent and demonstrates normal augmentation. augmentation. POP V is compressible, spontaneous, phasic, POP V is compressible, spontaneous, phasic, competent and demonstrates normal competent and demonstrates normal augmentation. augmentation. T/P Trunk is compressible. T/P Trunk is compressible. PTV is compressible. PTV is compressible. RT PerV is compressible. LT PerV is compressible. Procedure Exam performed in department. A preliminary report was called and/or faxed to [facility]. Interpretation Summary Deep veins of the lower extremities are bilaterally patent and compressible segmentally. There is no evidence of deep vein thrombosis on either side. Valvular competence appears intact within the proximal deep venous systems bilaterally. The great saphenous veins appear bilaterally patent and compressible segmentally. Ordering Physician: Marsha Baca Referring Physician: Gage Guadalupe Performed By: Jazmyn New RVT
== END | disposition home or self-care (01) ==
LOC: CVS 09:47
PROVIDERS: PCP Family Medicine; Referring Provider Family Medicine; Visit Provider Family Medicine
DX: I26.99 Other pulmonary embolism without acute cor pulmonale (principal)
CPT/HCPCS: 93970

== ENCOUNTER 2020-03-11 11:27 | Emergency (ER) | payer BC, SELFPAY ==
[2019-04-25 18:31] VITALS: BMI 22.4
[2020-03-11 11:29] VITALS: BP 141/85; PULSE 121; RESP 16; TEMP 36; O2SAT 98; BMI 22.1
--- NOTE | 2020-03-11 11:42 | EKG12_ITS ---
Test Reason : SOB Blood Pressure : / mmHG Vent. Rate : 109 BPM Atrial Rate : 109 BPM P-R Int : 180 ms QRS Dur : 086 ms QT Int : 378 ms P-R-T Axes : 071 092 051 degrees QTc Int : 509 ms Sinus tachycardia Rightward axis Borderline ECG Confirmed by LINDSAY URENA, JAVIER ([id number]), purchase request editor VÍCTOR SANTANA ([id number]) on 03/13/2020 8:46:21 AM Referred By: ZURI/CHARLINE Confirmed By:JAVIER MONTOYA MD
--- NOTE | 2020-03-11 11:43 | CT_ITS ---
STUDY: CTA CHEST REASON FOR EXAM: Female, 34 years old. Sob, fever, COUGH, TACHYCARDIA, HX-PE RADIATION DOSAGE (If Supplied By Facility): CTDIvol = ( 9.7 ) mGy, DLP = ( 232.81 ) mGycm TECHNIQUE: The examination was performed with the intravenous administration of IV 100mL Isovue-370. Post-processing of the angiographic images was performed, with multiplanar reformation and 3D reconstruction. Individualized dose optimization techniques were used for this CT. COMPARISON: CT angiograms chest April 25, 2019 FINDINGS: Normal enhancement of the main pulmonary artery and right and left pulmonary arteries. Normal enhancement of the bilateral peripheral pulmonary arteries. There is no demonstrated pulmonary embolism. Normal thoracic aorta and visualized great vessels. There is no demonstrated aortic dissection. Normal heart and pericardium. There are reactive appearing mediastinal and hilar lymph nodes nodes. There is left hilar lymphadenopathy measuring up to 1.4 cm. Is right hilar lymphadenopathy measuring up to 1.0 cm. Normal visualized trachea and bronchi. There multifocal groundglass opacities with predominance in the lung bases. Normal pleura. Normal chest wall structures. There are degenerative changes of thoracic spine. Normal visualized upper abdomen. CT/CTA Chest W/WO Contrast IMPRESSION: No pulmonary embolism. No aortic dissection. Multifocal pneumonia suspicious for Covid 19.. Electronically Signed: Luz Ramey MD at 13:55 EST Tel , Service support ,
--- NOTE | 2020-03-11 11:44 | ED.DCSUM_ITS ---
History of Present Illness Chief Complaint: Shortness of Breath Informant: Patient Onset: Days Context: Gradual Onset Current Severity: Mild Maximum Severity: Mild Narrative: Patient presents secondary to chest pressure, dry cough, fever, shortness of breath. Patient states 6 days ago she felt fatigued but assumed it was from extra activity over the holidays. On the she developed dry cough with fever. T-max yesterday was 102.5. She does complain of some chest pain with cough. She went to urgent care where they noted her heart rate to be slightly elevated and due to concern for PE was sent to the emergency room. Patient did have a history of PE but was taken off of Xarelto in October. She states that he attributed her PE to switching control pills. - Past Medical History (1) Pulmonary emboli Status: Resolved Past Medical History - Allergies and Home Meds Allergies/Adverse Reactions: Allergies No Known Allergies Allergy (Verified 03/11/20 11:29) Primary Care Physician: Gage Guadalupe MD [Primary Care Provider] - Prior records reviewed: Yes Surgical History: - - section x2 Lives: With Family Smoking Status: Never smoker - Family History Maternal Family History: Reports: No pertinent history - no hx of SLE, RA, DVT's and PE's in the family - maternal or paternal. Paternal Family History: Reports: No pertinent history Review of Systems General: Reports: Fever Eyes: Denies: Visual changes - bilaterally ENT: Denies: Bilateral ear pain Cardiovascular: Reports: Chest pain Respiratory: Reports: Dyspnea, Cough. Denies: Sputum Gastrointestinal: Denies: Abdominal pain, Nausea, Vomiting, Diarrhea Genitourinary: Denies: Dysuria Musculoskeletal: Denies: Swelling, Extremity Pain Skin: Denies: Rash Hematologic: Denies: Easy bruising, Easy bleeding Allergy: Denies: Uticaria Physical Exam Vital Signs/Narrative: Vital Signs Temp Pulse Resp BP Pulse Ox 03/11/20 11:29 96.8 F L 121 H 16 141/85 H 98 Inital Vital Signs reviewed: Yes General: Well nourished, Well developed Head: Normocephalic ENT: Moist mucous membranes Neck: Supple Cardiovascular: Regular rate, Regular rhythm Respiratory: No distress, CTA bilaterally Abdomen: Soft, Nontender, Normal bowel sounds Extremities: No edema Skin: Normal color Neurological: Alert, Oriented x3 Psychological: Normal affect Diagnostic/Tx/Re-eval Impressions Chest CTA 03/11/20 11:43 IMPRESSION: No pulmonary embolism. No aortic dissection. Multifocal pneumonia suspicious for Covid 19.. Electronically Signed: Luz Ramey MD at 13:55 EST Tel , Service support , 03/11/20 11:43 CTA Chest W/WO Contrast [CT] Stat 03/11/20 11:45 Mucosa - Nose SARS-CoV-2 Antigen (Rapid) - Final SARS-CoV-2 (COVID 19) Laboratory Results 03/11/20 03/11/20 11:58 11:58 WBC 3.2 L RBC 4.97 Hgb 13.1 Hct 41.2 MCV 82.9 MCH 26.4 L MCHC 31.8 L RDW Std Deviation 39.1 RDW Coeff of Lashanda 12.9 Plt Count 187 MPV 10.1 Immature Gran % (Auto) 0.300 Neut % (Auto) 67.3 Lymph % (Auto) 25.5 [place] % (Auto) 6.6 Eos % (Auto) 0.0 Baso % (Auto) 0.3 Absolute Neuts (auto) 2.1 Absolute Lymphs (auto) 0.81 L Nucleated RBC % 0 Sodium 137 Potassium 3.5 Chloride 101 Carbon Dioxide 28.0 Anion Gap 8 BUN 10 Creatinine 0.70 Estim Creat Clear Calc 94.56 Est GFR (MDRD) Af Amer 123 Est GFR (MDRD) Non-Af 102 BUN/Creatinine Ratio 14.2 Glucose 103 Calcium 8.6 Troponin I < 0.015 - EKG Initial EKG Interpretation: Sinus Tachycardia - Sinus tachycardia at 109 with no acute isc hemia. - Medical Decision Making Patient was observed on compliance monitor and vital signs have been stable throughout. Pulse ox is 96% on room air. Test results were reviewed with the patient. CBC and chemistry studies are grossly unremarkable. Covid test is positive. CTA of the chest does reveal multifocal pneumonia consistent with Covid. Patient will be started on Decadron and given a prescription for the same. I will speak with social work about getting a pulse oximeter for her to monitor her oxygen level at home. Patient was given return instructions. She does feel comfortable with the plan. ED Disposition - Plan for ED Patient: Disposition: Home or Assisted Living Diagnosis: COVID-19, Pneumonia due to COVID-19 virus Instructions: Coronavirus Disease 2019 (COVID-19): Overview, Coronavirus Disease 2019 (COVID-19): Prevention, Coronavirus Disease 2019 (COVID-19): Caring for Yourself or Others Prescriptions: Dexamethasone [Decadron] 6 mg PO DAILY 9 Days #9 tab Transmission Status: Pending to [facility]/pharmacy #[id number] Referrals: Gage Guadalupe MD [Primary Care Provider] - 1 Week if not improving
[2020-03-11 12:08] VITALS: BP 127/80; PULSE 106; RESP 18; TEMP 36; O2SAT 96
[2020-03-11 12:45] LABS: Anion Gap 8 (5-15); BUN 10 mg/dL (7-18); BUN/Creat Ratio 14.2 RATIO (10-20); Calcium,Total 8.6 mg/dL (8.5-10.1); Chloride 101 mmol/L (98-107); EST Glomerular Filtration Rate 102 mL/min (>60); Est Glom Filt Rate - Afr Amer 123 mL/min (>60); Estimated Creatinine Clearance 94.56 ml/min; Glucose 103 mg/dL (74-106); Potassium 3.5 mmol/L (3.5-5.1); Sodium Level 137 mmol/L (136-145)
[2020-03-11 13:35] LABS: Absolute Lymphocyte Count 0.81 X10^3/uL (0.83-4.51); Absolute Neutrophil Count 2.1 X10^3/uL (2.0-7.7); Basophil# 0.01 X10^3/uL; Basophil% 0.3 % (0-1); Hematocrit 41.2 % (37-47); Hemoglobin 13.1 g/dL (12.0-15.0); Lymphocyte # 0.81 X10^3/ul (4.0); Lymphocyte % 25.5 % (19-41); Mean Corp Hgb Conc 31.8 g/dL (32-36); Mean Corpuscular Hgb 26.4 pg (27.0-32.0); Mean Corpuscular Volume 82.9 fL (81-99); Mean Platelet Vol. 10.1 fl (6.2-12.0); Monocyte# 0.21 X10^3/uL; Monocyte% 6.6 % (0-10); NRBC Flagged by Analyzer 0 % (0-5); Neutrophil # 2.14 X10^3/uL (2.7-7.7); Neutrophil % 67.3 % (47-70); Platelet Count 187 K/mm3 (150-450); RBC Distribution Width CV 12.9 % (11.6-14.6); RBC Distribution Width SD 39.1 fl (35.1-43.9); Red Blood Count 4.97 M/mm3 (4.2-5.4); White Blood Count 3.2 K/mm3 (4.4-11.0)
[2020-03-11 14:23] VITALS: BP 117/75; RESP 19; O2SAT 96
[2020-03-11 14:36] VITALS: BP 117/78; PULSE 109; RESP 20; O2SAT 97
[2020-03-11] MEDS: dexAMETHasone 4 MG Tablet 6 MG PO (14:36)
== END 2020-03-11 15:04 | disposition home or self-care (01) ==
PROVIDERS: Emergency Provider Emergency Medicine; PCP Family Medicine
DX: U07.1 COVID-19 (principal); J12.82 Pneumonia due to coronavirus disease 2019; Z86.711 Personal history of pulmonary embolism
CPT/HCPCS: 71275; 80048; 84484; 85025; 87426; 93005; 99285; Q9967; A4216

== ENCOUNTER → 2020-09-18 15:19 | Outpatient (CLI) | payer BC, SELFPAY ==
[2020-09-18 18:12] LABS: Vitamin D,25 Hydroxy 27.1 ng/mL
[2020-09-18 18:22] LABS: Anion Gap 5 (5-15); BUN 13 mg/dL (7-18); BUN/Creat Ratio 17.7 RATIO (10-20); Calcium,Total 8.9 mg/dL (8.5-10.1); Chloride 105 mmol/L (98-107); Cholesterol 191 mg/dL (200); Creatinine, Serum 0.73 mg/dL (0.55-1.02); EST Glomerular Filtration Rate 96 mL/min (>60); Est Glom Filt Rate - Afr Amer 116 mL/min (>60); Glucose 73 mg/dL (74-106); High Density Lipoprotein 51 mg/dL; Potassium 4.1 mmol/L (3.5-5.1); Sodium Level 139 mmol/L (136-145); Triglycerides 296 mg/dL; Very Low Density Lipoprotein 59 mg/dL (5-40)
== END ==
PROVIDERS: PCP Family Medicine; Referring Provider Family Medicine; Visit Provider Family Medicine
DX: Z00.00 Encounter for general adult medical examination without abnormal findings (principal)
CPT/HCPCS: 36415; 80048; 80061; 82306

== ENCOUNTER 2021-06-21 07:25 | Outpatient (CLI) | payer BC, SELFPAY ==
[2021-06-28 18:07] LABS: Alternaria tenuis <0.10 kU/L (Class 0); Ash, White <0.10 kU/L (Class 0); Aspergillus fumigatus <0.10 kU/L (Class 0); Bermuda Grass <0.10 kU/L (Class 0); Birch <0.10 kU/L (Class 0); Black Walnut <0.10 kU/L (Class 0); Cat Hair / Dander,Stand <0.10 kU/L (Class 0); Cedar, Mountain <0.10 kU/L (Class 0); Cladosporium herbarum <0.10 kU/L (Class 0); Cockroach, American <0.10 kU/L (Class 0); Cottonwood <0.10 kU/L (Class 0); D farinae Mite <0.10 kU/L (Class 0); D pteronyssinus <0.10 kU/L (Class 0); Dog Epithelia <0.10 kU/L (Class 0); Elm, American White <0.10 kU/L (Class 0); Immunoglobulin E 25 IU/mL (6-495); Maple/Box Elder <0.10 kU/L (Class 0); Mulberry, White <0.10 kU/L (Class 0); Oak, White <0.10 kU/L (Class 0); Pecan <0.10 kU/L (Class 0); Penicillium Notatum <0.10 kU/L (Class 0); Pigweed, Rough <0.10 kU/L (Class 0); Ragweed, Short/Common <0.10 kU/L (Class 0); Russian Thistle <0.10 kU/L (Class 0); Sheep Sorrel <0.10 kU/L (Class 0); Sycamore, American <0.10 kU/L (Class 0); Timothy Grass <0.10 kU/L (Class 0)
[2021-06-28 18:54] LABS: Mouse Urine <0.10 kU/L (Class 0)
== END 2021-06-21 23:59 | disposition home or self-care (01) ==
PROVIDERS: PCP Family Medicine; Referring Provider Otolaryngology; Visit Provider Otolaryngology
DX: T78.40XA Allergy, unspecified, initial encounter (principal)
CPT/HCPCS: 36415; 82785; 86003

== ENCOUNTER → 2021-11-09 | Outpatient (CLI) | payer BC, SELFPAY ==
--- NOTE | 2021-11-09 10:10 | RAD_ITS ---
EXAM: XR LUMBOSACRAL SPINE, 4 OR 5 VIEWS CLINICAL INDICATION: BACK PAIN TECHNIQUE: Frontal, lateral and bilateral oblique views of the lumbar spine. This report was created using [employer] report generation technology. COMPARISON: None. FINDINGS: VERTEBRAE: Normal. Preserved vertebral body height. No fracture. No spondylolisthesis. Preservation of the normal lumbar lordosis. No significant facet arthropathy. DISC SPACES: No acute findings. Disc spaces are maintained. GASTROINTESTINAL TRACT: Normal bowel gas pattern. OTHER FINDINGS: IUD noted within the pelvis. RAD/L/S Spine Min 4 Views IMPRESSION: No acute findings in the lumbar spine. Electronically Signed: Rambo Pitt MD at 11:31 EDT ,
[2021-11-09 12:39] LABS: Vitamin D,25 Hydroxy 35.3 ng/mL
[2021-11-09 12:48] LABS: Anion Gap 6 (5-15); BUN 10 mg/dL (7-18); BUN/Creat Ratio 15.9 RATIO (10-20); Calcium,Total 8.6 mg/dL (8.5-10.1); Chloride 106 mmol/L (98-107); Cholesterol 201 mg/dL (200); Creatinine, Serum 0.63 mg/dL (0.55-1.02); EST Glomerular Filtration Rate 115 mL/min (>60); Est Glom Filt Rate - Afr Amer 139 mL/min (>60); Glucose 97 mg/dL (74-106); High Density Lipoprotein 60 mg/dL; Potassium 4.1 mmol/L (3.5-5.1); Sodium Level 139 mmol/L (136-145); Thyroid Stim Hormone (TSH) 0.84 uIU/mL (0.358-3.74); Triglycerides 113 mg/dL; Very Low Density Lipoprotein 23 mg/dL (5-40)
== END | disposition home or self-care (01) ==
LOC: MTLAB 10:02
PROVIDERS: PCP Family Medicine; Referring Provider Family Medicine; Visit Provider Family Medicine
DX: Z00.00 Encounter for general adult medical examination without abnormal findings (principal); M54.9 Dorsalgia, unspecified
CPT/HCPCS: 36415; 72110; 80048; 80061; 82306; 84443

== ENCOUNTER → 2022-02-27 | Outpatient (CLI) | payer BC, SELFPAY ==
[2022-03-07 21:05] LABS: HPV APTIMA, High Risk Negative (Negative)
== END | disposition home or self-care (01) ==
LOC: LABSPEC 12:04
PROVIDERS: PCP Family Medicine; Visit Provider Nurse Practitioner Women's Health
DX: Z12.4 Encounter for screening for malignant neoplasm of cervix (principal)
CPT/HCPCS: 87624; 88175; G0145

== ENCOUNTER → 2022-06-10 | Outpatient (CLI) | payer BC, SELFPAY ==
--- NOTE | 2022-06-10 14:30 | RAD_ITS ---
INDICATION: PAIN EXAMINATION/TECHNIQUE: X-RAY - LEFT XR Shoulder Min 2 Views 4 VIEWS COMPARISON: None. FINDINGS: BONES: No fracture demonstrated. JOINTS: No dislocation. SOFT TISSUES: Unremarkable. RAD/Shoulder min 2 Views IMPRESSION: No evidence of fracture. Electronically Signed: Zahida August MD at 7:25 EDT ,
== END | disposition home or self-care (01) ==
LOC: MTRAD 14:26
PROVIDERS: PCP Family Medicine; Referring Provider Family Medicine; Visit Provider Family Medicine
DX: R03.0 Elevated blood-pressure reading, without diagnosis of hypertension (principal); M25.512 Pain in left shoulder
CPT/HCPCS: 73030